=== PATIENT | female | born 1930 | race Caucasian/White ===

== ENCOUNTER 2017-07-21 09:53 | Day surgery (SDC) | payer MEDICARE, MEDICAID ==
[2017-07-21] MEDS ORDERED: MIDAZOLAM HCL 5 MG/ML VIAL (1 ML) ONE (12:13)
--- NOTE | 2017-07-21 13:16 | MA ---
cc: AMARA AMBROCIO MD DATE 07/21/2017 PROCEDURE PERFORMED 1. 15 minutes moderate IV sedation. 2. Loop recorder insertion. REASON FOR PROCEDURE Syncope DESCRIPTION OF THE PROCEDURE The patient was brought to the DOC unit in the postabsorptive state after informed consent was obtained. 2 mg of Versed and 15 mcg of Fentanyl was given for moderate IV sedation. Using the standard sterile technique, a [employer] LINQ loop recorder was inserted subcutaneously to the left chest. The patient tolerated procedure well without any apparent complications. Tachybrady pause and atrial fibrillation detection was enabled. The initial R-wave was 0.38 mV. The serial number was [id number]. MD SEN Banuelos/ASPEN /12:45 PM /1:12 PM
[2017-07-21] MEDS ORDERED: CHLORHEXIDINE GLUCONATE 2 % 1 PACK (2 CLOTHS) TOPICAL SCH (13:30)
[2017-07-21] MEDS ORDERED: POVIDONE IODINE 5% (ANTISEPSIS KIT) 4 APPLICATIONS EACH NARE SCH (13:30)
[2017-07-21] MEDS ORDERED: MUPIROCIN 2% OINT 1 APPLIC/GM SYR NASAL SCH (13:30)
[2017-07-21] MEDS ORDERED: ceFAZolin 2 GM PREMIX 50 ML IV SCH (13:30)
[2017-07-21] MEDS ORDERED: 1/2 NS 1000 ML IV SCH (13:30)
== END 2017-07-21 14:11 | disposition home or self-care (01) ==
LOC: HDOC 09:53 → HDIC 09:53 → HDOC 14:11
PROVIDERS: ATTEND Nuclear Medicine Nuclear Cardiology
DX: R55 Syncope and collapse (principal); I10 Essential (primary) hypertension
CPT/HCPCS: 33282; C1764; J2250; J3010